=== PATIENT | male | born 1950 | race Caucasian/White ===

== ENCOUNTER 2017-05-25 09:34 | Day surgery (SDC) | payer OTHER ==
[2017-05-25] MEDS ORDERED: BENZOCAINE UNIT DOSE SPRAY HURRICAINE MM ONE (09:36)
[2017-05-25] MEDS ORDERED: MIDAZOLAM 2 MG/2 ML VIAL IVP ONE (09:36)
[2017-05-25] MEDS ORDERED: fentaNYL 100 MCG/2 ML INJ IVP ONE (09:36)
[2017-05-25] MEDS ORDERED: NS 500 ML IV ONE (09:36)
[2017-05-25] MEDS ORDERED: ATROPINE SULFATE 1 MG/10 ML SYR IVP ONE (09:36)
[2017-05-25 10:24] LABS: INR 1.39 (0.83-1.16)
[2017-05-25 10:25] LABS: APTT 51.7 SEC (23.0-38.0)
[2017-05-25 10:46] LABS: ANION GAP 12 mEq/L (8-16); CALCIUM 9.9 mg/dL (8.5-10.4); CARBON DIOXIDE 20 mEq/l (22-31); CHLORIDE 108 mEq/L (97-110); CREATININE 0.9 mg/dL (0.7-1.3); GLOMERULAR FILTRATION RATE > 60; GLUCOSE 105 mg/dL (70-100); MAGNESIUM 1.9 mg/dL (1.6-2.3); POTASSIUM 4.7 mEq/L (3.5-5.2); SODIUM 140 mEq/L (134-144)
--- NOTE | 2017-05-25 11:51 | PDANEPAE ---
ANE History of Present Illness 67 yo for dccv afib beny cm? ef-55% htn ANE Past Medical History - Cardiovascular History Hx Hypertension: Yes Hx Arrhythmias: Yes - Pulmonary History Hx COPD: Yes Hx Oxygen in Use at Home: Yes Hx Sleep Apnea: Yes - Endocrine History Hx Diabetes: No ANE Review of Systems Review of Systems: ANE Patient History - Allergies Allergies/Adverse Reactions: zolpidem Allergy (Severe, Verified 05/25/17 09:44) self harm - Home Medications Home medications: home medication list seen and reviewed Home Medications: Aspirin [Aspirin 81mg (*)] 81 mg PO DAILY 11/17/11 [Last Taken 02/01/16] Atorvastatin Calcium [Lipitor 20 mg (*)] 20 mg PO DAILY 11/17/11 [Last Taken ] Cholecalciferol (Vitamin D3) [Vitamin D-3] 2,000 unit PO DAILY 11/17/11 [Last Taken 07/18/12] Dabigatran Etexilate Mesyl [Pradaxa 150 MG (*)] 150 mg PO BID 11/17/11 [Last Taken 02/01/16 20:00] Multivitamins [Multivitamin (*)] 1 each PO DAILY 11/17/11 [Last Taken 07/18/12] Omeprazole [Prilosec 40 mg] 40 mg PO TID 11/17/11 [Last Taken 02/03/16 08:00] [place]-3 Fatty Acids [Fish Oil 1000 mg (*)] 3,000 mg PO DAILY 07/02/12 [Last Taken 07/18/12] Budesonide/Formoterol 160/4.5 [Symbicort 160-4.5 Mcg Inh (*)] 2 puffs IH BID [Last Taken Unknown] Metoprolol Tartrate [Lopressor 25 mg (*)] 25 mg PO BID 02/04/16 [Last Taken 20:00] - NPO status NPO Status: no food or drink >8 hours - Smoking Hx Smoking Status: Former smoker ANE Labs/Vital Signs - Labs Result Diagrams: 05/25/17 10:10 ANE Physical Exam - Airway Neck exam: FROM Mallampati Score: Class 2 Mouth exam: normal dental/mouth exam - Pulmonary Pulmonary: no respiratory distress - Cardiovascular Cardiovascular: regular rate and rhythym - ASA Status ASA Status: III ANE Anesthesia Plan Anesthesia Plan: GA with mask Total IV Anesthesia: Yes
[2017-05-25] MEDS ORDERED: PROPOFOL 200 MG/20 ML VIAL ONE (11:54)
--- NOTE | 2017-05-25 12:33 | PDGENHP ---
History & Physical Chief Complaint: AF History of Present Illness: 67 yo M hx PAF, on chronic Pradaxa s/p ablation x 3 and past DCCV. Presents for semi-elective DCCV. Reports compliance with Pradaxa and no missed doses Pertinent Past, Social, Family History: reviewed per Dr. Frazier's past note Relevant Physical Exam: Irreg irreg, tachy. lungs CTAB Cardiorespiratory Assessment: stable
--- NOTE | 2017-05-25 12:34 | PDTEE1 ---
MICHAEL Cardioversion Procedure Procedure: electrical cardioversion Indications: atrial fibrillation Consent: signed and in chart Anticoagulation: other (Pradaxa) Procedural Details: Pads were placed in anterior-posterior position. MICHAEL not performed as patient has been taking Pradaxa without fail for years. Synchronized cardioversion attempt #1: 200J Results: normal sinus rhythm Conclusions: successful cardioversion Patient Problems: Problems Problem Status Onset CHF - Congestive heart failure Active Cardiomyopathy Active
--- NOTE | 2017-05-25 12:41 | CPEKG ---
Heart Rate: 61 RR Interval: 984 P-R Interval: 180 QRSD Interval: 88 QT Interval: 436 QTC Interval: 440 P [place]: 52 QRS [place]: 17 T Wave [place]: 33 EKG Severity - NORMAL ECG - EKG Impression: SINUS RHYTHM Electronically Signed By: Osei Urena 28-May-2017 13:45:11
--- NOTE | 2017-05-25 12:48 | POSTANESTH ---
Post Anesthetic Evaluation Cardiovascular Status: Normal, Stable Respiratory Status: Normal, Stable Level of Consciousness/Mental Status: Can Participate in Eval Pain Control: Adequate, Prn Tx Ordered Nausea/Vomiting Control: Adequate, Prn Tx Ordered Complications Possibly Related to Anesthesia: None Noted
== END 2017-05-25 14:45 | disposition home or self-care (01) ==
LOC: FCATH 09:34
PROVIDERS: ATTEND Internal Medicine Cardiovascular Disease
PROC: 5A2204Z Restoration of Cardiac Rhythm, Single (ICD-10-PCS; principal; 2017-05-25)
DX: I48.91 Unspecified atrial fibrillation (principal); I51.7 Cardiomegaly; Z87.891 Personal history of nicotine dependence
CPT/HCPCS: J2704

== ENCOUNTER 2017-09-28 08:53 | Day surgery (SDC) | payer OTHER ==
[2017-09-28] MEDS ORDERED: ATROPINE SULFATE 1 MG/10 ML SYR IVP ONE (08:56)
[2017-09-28] MEDS ORDERED: NS 500 ML IV ONE (08:56)
[2017-09-28] MEDS ORDERED: MIDAZOLAM 2 MG/2 ML VIAL IVP ONE (08:56)
[2017-09-28] MEDS ORDERED: fentaNYL 100 MCG/2 ML INJ IVP ONE (08:56)
--- NOTE | 2017-09-28 09:31 | PDHPUP ---
History & Physical Update H&P update statement: This history and physical update is based on an assessment of the patient which was completed after admission or registration (within 24 hours), but prior to the surgery/procedure. H&P update: H&P reviewed & patient examined, no change in patient's condition since H&P completed
[2017-09-28 09:34] LABS: INR 1.13 (0.83-1.16); PROTIME(PATIENT) 14.7 SEC (12.0-15.0)
[2017-09-28] MEDS ORDERED: NALOXONE HCL 0.4 MG/ML INJ IVP PRN (09:39)
[2017-09-28] MEDS ORDERED: ONDANSETRON 4 MG/2 ML VIAL IVP PRN (09:39)
--- NOTE | 2017-09-28 09:40 | PDANEPAE ---
ANE History of Present Illness A. Fib CV ANE Past Medical History - Cardiovascular History Hx Hypertension: Yes Hx Arrhythmias: Yes - Pulmonary History Hx COPD: Yes Hx Oxygen in Use at Home: Yes Hx Sleep Apnea: Yes - Endocrine History Hx Diabetes: No ANE Review of Systems Review of Systems: ANE Patient History - Allergies Allergies/Adverse Reactions: zolpidem Allergy (Severe, Verified 05/25/17 09:44) self harm - Home Medications Home Medications: Aspirin [Aspirin 81mg (*)] 81 mg PO DAILY 11/17/11 [Last Taken 02/01/16] Atorvastatin Calcium [Lipitor 20 mg (*)] 20 mg PO DAILY 11/17/11 [Last Taken ] Cholecalciferol (Vitamin D3) [Vitamin D-3] 2,000 unit PO DAILY 11/17/11 [Last Taken 07/18/12] Dabigatran Etexilate Mesyl [Pradaxa 150 MG (*)] 150 mg PO BID 11/17/11 [Last Taken 02/01/16 20:00] Multivitamins [Multivitamin (*)] 1 each PO DAILY 11/17/11 [Last Taken 07/18/12] Omeprazole [Prilosec 40 mg] 40 mg PO TID 11/17/11 [Last Taken 02/03/16 08:00] [place]-3 Fatty Acids [Fish Oil 1000 mg (*)] 3,000 mg PO DAILY 07/02/12 [Last Taken 07/18/12] Budesonide/Formoterol 160/4.5 [Symbicort 160-4.5 Mcg Inh (*)] 2 puffs IH BID [Last Taken Unknown] Metoprolol Tartrate [Lopressor 25 mg (*)] 25 mg PO BID 02/04/16 [Last Taken 20:00] - Smoking Hx Smoking Status: Former smoker ANE Labs/Vital Signs - Labs Result Diagrams: 09/28/17 09:10 - Vital Signs Height: 183 cm Weight: 113.4 kg ANE Physical Exam - Airway Neck exam: FROM Mouth exam: normal dental/mouth exam - Pulmonary Pulmonary: clear to auscultation - Cardiovascular Cardiovascular: regular rate and rhythym - ASA Status ASA Status: II ANE Anesthesia Plan Anesthesia Plan: GA with mask
[2017-09-28] MEDS ORDERED: PROPOFOL 200 MG/20 ML VIAL ONE (10:12)
--- NOTE | 2017-09-28 10:35 | CPEKG ---
Heart Rate: 58 RR Interval: 1034 P-R Interval: 188 QRSD Interval: 90 QT Interval: 424 QTC Interval: 417 P [place]: 52 QRS [place]: 18 T Wave [place]: 27 EKG Severity - OTHERWISE NORMAL ECG - EKG Impression: SINUS RHYTHM EKG Impression: ATRIAL PREMATURE COMPLEX Electronically Signed By: Naldo Monet 28-Sep-2017 12:09:30
--- NOTE | 2017-09-28 10:38 | POSTANESTH ---
Post Anesthetic Evaluation Cardiovascular Status: Normal, Stable Respiratory Status: Normal, Stable Level of Consciousness/Mental Status: Can Participate in Eval, Alert and Oriented Pain Control: Adequate, Prn Tx Ordered Nausea/Vomiting Control: Adequate, Prn Tx Ordered
--- NOTE | 2017-09-28 11:06 | CPIP ---
[f rep st] INVASIVE CARDIAC PROCEDURE DATE OF PROCEDURE: 09/28/2017 CARDIOVERSION REPORT INDICATIONS: Symptomatic atrial fibrillation. COMPLICATIONS: None. DESCRIPTION OF PROCEDURE: N.p.o. status was confirmed, informed consent obtained, and time-out perfo rmed. The patient has been taking his Pradaxa twice daily as prescribed without fail for several mon ths. He has not missed a single dose. Sedation was provided by Dr. Uriarte of the anesthesia service. The patient received a single 200 joule synchronized shock that converted him from atrial fibrillatio n to sinus rhythm. This was confirmed with 12-lead EKG. CONCLUSION: 1. Successful DC cardioversion. 2. Resume Rythmol SR 225 b.i.d. 3. Continue Xarelto and beta elicia. 4. Patient currently in stable condition. Will be discharged home from the . /[id number]/MODL
== END 2017-09-28 12:00 | disposition home or self-care (01) ==
LOC: FCATH 08:53
PROVIDERS: ATTEND Internal Medicine Cardiovascular Disease
PROC: 5A2204Z Restoration of Cardiac Rhythm, Single (ICD-10-PCS; principal; 2017-09-28)
DX: I48.91 Unspecified atrial fibrillation (principal); Z87.891 Personal history of nicotine dependence
CPT/HCPCS: J2704

== ENCOUNTER 2017-10-30 09:11 | Day surgery (SDC) | payer OTHER ==
[2017-10-30] MEDS ORDERED: fentaNYL 100 MCG/2 ML INJ IVP ONE (09:15)
[2017-10-30] MEDS ORDERED: NS 500 ML IV ONE (09:15)
[2017-10-30] MEDS ORDERED: ATROPINE SULFATE 1 MG/10 ML SYR IVP ONE (09:15)
[2017-10-30] MEDS ORDERED: MIDAZOLAM 2 MG/2 ML VIAL IVP ONE (09:15)
[2017-10-30 09:53] LABS: INR 1.33 (0.83-1.16); PROTIME(PATIENT) 16.7 SEC (12.0-15.0)
[2017-10-30] MEDS ORDERED: PROPOFOL 200 MG/20 ML VIAL ONE (09:55)
--- NOTE | 2017-10-30 09:56 | PDHPUP ---
History & Physical Update H&P update statement: This history and physical update is based on an assessment of the patient which was completed after admission or registration (within 24 hours), but prior to the surgery/procedure. Pt with new onset of PAF. He is on Pradaxa 150 mg bid. He has not missed any doses. H&P update: H&P reviewed & patient examined, no change in patient's condition since H&P completed, changes noted
--- NOTE | 2017-10-30 09:58 | PDANEPAE ---
ANE History of Present Illness a. fib for CV ANE Past Medical History - Cardiovascular History Hx Hypertension: Yes Hx Arrhythmias: Yes Hx Chest Pain: No Hx Coronary Artery / Peripheral Vascular Disease: Yes Hx CHF / Valvular Disease: No Hx Palpitations: Yes - Pulmonary History Hx COPD: Yes Hx Asthma/Reactive Airway Disease: No Hx Recent Upper Respiratory Infection: No Hx Oxygen in Use at Home: Yes Hx Sleep Apnea: Yes - Endocrine History Hx Diabetes: No Hypothyroid: No Hyperthyroid: No Obesity: yes ANE Review of Systems Review of systems is: negative Review of Systems: - Exercise capacity Exercise capacity: >=4 METS ANE Patient History - Allergies Allergies/Adverse Reactions: zolpidem Allergy (Severe, Verified 05/25/17 09:44) self harm - Home Medications Home medications: home medication list seen and reviewed Home Medications: Aspirin [Aspirin 81mg (*)] 81 mg PO DAILY 11/17/11 [Last Taken 10/30/17 05:00] Atorvastatin Calcium [Lipitor 20 mg (*)] 20 mg PO DAILY 11/17/11 [Last Taken 05:00] Cholecalciferol (Vitamin D3) [Vitamin D-3] 2,000 unit PO DAILY 11/17/11 [Last Taken 10/29/17 07:00] Dabigatran Etexilate Mesyl [Pradaxa 150 MG (*)] 150 mg PO BID 11/17/11 [Last Taken 10/30/17 05:00] Multivitamins [Multivitamin (*)] 1 each PO DAILY 11/17/11 [Last Taken 10/29/17 07:00] Omeprazole [Prilosec 40 mg] 40 mg PO TID 11/17/11 [Last Taken 10/30/17 05:00] [place]-3 Fatty Acids [Fish Oil 1000 mg (*)] 3,000 mg PO DAILY 07/02/12 [Last Taken 10/29/17 07:00] Budesonide/Formoterol 160/4.5 [Symbicort 160-4.5 Mcg Inh (*)] 2 puffs IH BID [Last Taken 10/30/17 05:00] Metoprolol Tartrate [Lopressor 25 mg (*)] 25 mg PO BID 02/04/16 [Last Taken 05:00] - Smoking Hx Smoking Status: Former smoker ANE Labs/Vital Signs - Labs Result Diagrams: 10/30/17 09:20 - Vital Signs Height: 183 cm Weight: 113.4 kg ANE Physical Exam - Airway Neck exam: FROM Mallampati Score: Class 2 Mouth exam: normal dental/mouth exam - Pulmonary Pulmonary: no respiratory distress - Cardiovascular Cardiovascular: regular rate and rhythym - ASA Status ASA Status: III ANE Anesthesia Plan Anesthesia Plan: GA with mask
--- NOTE | 2017-10-30 10:14 | CPEKG ---
Heart Rate: 56 RR Interval: 1071 P-R Interval: 200 QRSD Interval: 94 QT Interval: 452 QTC Interval: 437 P [place]: 42 QRS [place]: 15 T Wave [place]: 29 EKG Severity - NORMAL ECG - EKG Impression: SINUS RHYTHM Electronically Signed By: Noah Schmid 03-Nov-2017 11:40:45
[2017-10-30] MEDS ORDERED: fentaNYL 100 MCG/2 ML INJ IVP PRN (10:47)
[2017-10-30] MEDS ORDERED: HYDROmorphONE/DILAUDID 1 MG/ML INJ IVP PRN (10:47)
[2017-10-30] MEDS ORDERED: ALBUTEROL 3 ML DEYVIAL IH PRN (10:47)
[2017-10-30] MEDS ORDERED: ONDANSETRON 4 MG/2 ML VIAL IVP PRN (10:47)
[2017-10-30] MEDS ORDERED: NALOXONE HCL 0.4 MG/ML INJ IVP PRN (10:47)
== END 2017-10-30 12:03 | disposition home or self-care (01) ==
LOC: FCATH 09:11
PROVIDERS: ATTEND Internal Medicine Cardiovascular Disease
PROC: 5A2204Z Restoration of Cardiac Rhythm, Single (ICD-10-PCS; principal; 2017-10-30)
DX: I48.0 Paroxysmal atrial fibrillation (principal); I10 Essential (primary) hypertension; J44.9 Chronic obstructive pulmonary disease, unspecified; G47.33 Obstructive sleep apnea (adult) (pediatric); K21.9 Gastro-esophageal reflux disease without esophagitis; Z79.01 Long term (current) use of anticoagulants; Z87.891 Personal history of nicotine dependence
CPT/HCPCS: J0461; J2704